=== PATIENT | male | born 1995 | race Caucasian/White ===

== ENCOUNTER 2024-07-07 14:30 | Emergency (ER) | payer SELFPAY ==
[~2024-07-07] VITALS: Ht 177.8 cm; Wt 80.0 kg
[2024-07-07 14:32] VITALS: BP 166/106; TEMP 98.3; O2SAT 96
[2024-07-07] MEDS ORDERED: GUAI-450 MT (15:42)
[2024-07-07] MEDS ORDERED: ALBU18HF2 IH (15:42)
[2024-07-07] MEDS ORDERED: P50 MT (15:42)
[2024-07-07 16:05] VITALS: PULSE 79; RESP 18; O2SAT 100
== END 2024-07-07 16:05 | disposition home or self-care (01) ==
LOC: ER 14:30
DX: J20.8 Acute bronchitis due to other specified organisms (principal); R50.9 Fever, unspecified
CPT/HCPCS: 71045; 93005; 99283